=== PATIENT | male | born 1985 | race Caucasian/White ===

== ENCOUNTER → 2018-06-10 | Outpatient (REF) | payer OTHER ==
--- NOTE | 2018-06-10 09:58 | RADIOLOGY IMAGING REPORT ---
FACILITY: [facility] PATIENT NAME: Leno Daniels : 1985 MR: [id number] V: [id number] EXAM DATE: ORDERING PHYSICIAN: NGUYỄN HAYNES TECHNOLOGIST: Location: [facility] [place] Patient: Leno Daniels : 1985 Visit/Account:[id number] Date of Sevice: 06/10/2018 Exam type: CHEST SINGLE AP History: Work care physical Comparison: May 12, 2014. Findings: The lungs are free of acute effusions, infiltrates or edema. The cardiac silhouette is normal in siz e. The trachea is midline. Visualized bones are grossly unremarkable. IMPRESSION: 1. No acute cardiac pulmonary process is seen Report Dictated By: Columba Ordoñez MD at 06/10/2018 9:36 AM Report E-Signed By: Columba Ordoñez MD at 06/10/2018 9:37 AM WSN:[email or web address]
== END ==
LOC: RAD 09:00 → EDSTATUS 06-23 16:10
PROVIDERS: ATTEND Physician Assistant Medical
DX: Z02.79 Encounter for issue of other medical certificate (principal)
CPT/HCPCS: 71045

== ENCOUNTER → 2018-07-15 | Outpatient (REF) | payer OTHER | LOC: ZZSENDIN 16:46 | PROVIDERS: ATTEND Physician Assistant Medical | DX: E78.2 Mixed hyperlipidemia (principal) | CPT/HCPCS: 36415; 82465; 83718; 84478 ==

== ENCOUNTER → 2018-10-11 | Outpatient (CLI) | payer OTHER ==
[~2018-10-11] MED LIST: ASPI1TAB35 PO; DIPH-740 PO; FEXO-67 PO; FLUT16SP19 NS; MONT10TA PO
== END ==
LOC: LAB 08:12
PROVIDERS: ATTEND Physician Assistant
DX: E78.2 Mixed hyperlipidemia (principal)
CPT/HCPCS: 36415; 82465; 83718; 84478